=== PATIENT | male | born 1985 | race Two or more races ===

== ENCOUNTER 2017-02-16 18:53 | Emergency (ER) | payer OTHER ==
[~2017-02-16] VITALS: Ht 182.9 cm; Wt 122.5 kg
--- NOTE | 2017-02-16 19:23 | Emergency Room Report ---
History of Present Illness General Chief Complaint: General Complaint Source: Patient Present Illness HPI 32-year-old male presents to the emergency department complaining of fatigue, feeling light-headed with intermittent dizziness, polyuria in addition to numbness down a localized portion of the lateral right leg. Patient reports previous history of muscle spasm in the low back denies history of sciatica. Denies trauma or fall. he reports intermittent dizziness upon getting up too quickly, describes feeling off balance for several seconds then resolves. he reports feeling weak and as if he is near syncope. Denies Pmhx. Denies history of diabetes or cardiac problems. Denies recent illness or travel. He denies vertigo, calf pain, or claudication. Denies familial cardiac or DM hx. Denies nausea or vomiting. Denies fevers, chills, abdominal pain, rash, CHUN, tinnitus. Denies CP, LOC, AMS, , Changes in Vision, or a sudden severe headache. Allergies: Coded Allergies: No Known Allergies (Unverified , 02/16/17) Patient History Past Medical History: see triage record Past Surgical History: none Pertinent Family History: none Reviewed Nursing Documentation: PMH: Agreed, PSxH: Agreed Nursing Documentation-PMH Past Medical History: No Stated History Review of Systems All Other Systems: negative except mentioned in HPI Physical Exam Vital Signs Date Time Temp Pulse Resp B/P (MAP) Pulse Ox O2 Delivery O2 Flow Rate FiO2 02/16/17 19:01 98.1 76 18 154/83 99 Room Air Sp02 EP Interpretation: reviewed, normal General Appearance: no apparent distress, alert, GCS 15, non-toxic Head: normocephalic, atraumatic Eyes: bilateral eye normal inspection, bilateral eye PERRL ENT: hearing grossly normal, normal voice Neck: full range of motion, thyroid normal - grossly normal, supple/symm/no masses Respiratory: lungs clear, normal breath sounds, speaking full sentences Cardiovascular #1: regular rate, rhythm, no edema, no murmur, normal capillary refill Cardiovascular #2: 2+ radial (R), 2+ dorsalis pedis (R), 2+ dorsalis pedis (L) Genitourinary: no CVA tenderness Musculoskeletal: back normal, gait/station normal, normal range of motion, non- tender, no calf tenderness, Hoang's Sign negative, other - NO TTP to the right extremity, pt. localized small area of percieved paresthesia to the lateral aspect of the right thigh. No midline spinal TTP, no obvious deformities, pulses in the extremity are 2+ and equal. Neurologic: alert, oriented x3, responsive, motor strength/tone normal, sensory intact, cerebellar normal, normal gait, speech normal, no pronator Psychiatric: judgement/insight normal, memory normal, mood/affect normal Skin: normal color, no rash, warm/dry, well hydrated Lymphatic: no adenopathy Medical Decision Making PA Attestation Dr. Ferrer is my supervising Physician whom patient management has been discussed with. Diagnostic Impression: Primary Impression: Orthostatic dizziness Additional Impression: Paresthesia of right leg ER Course 32-year-old male presents to the emergency department complaining of fatigue, feeling light-headed with intermittent dizziness, polyuria in addition to numbness down a localized portion of the lateral right leg. Patient reports previous history of muscle spasm in the low back denies history of sciatica. Denies trauma or fall. he reports intermittent dizziness upon getting up too quickly, describes feeling off balance for several seconds then resolves. he reports feeling weak and as if he is near syncope. Denies Pmhx. Denies history of diabetes or cardiac problems. Denies recent illness or travel. He denies vertigo, calf pain, or claudication. Denies familial cardiac or DM hx. Denies nausea or vomiting. Denies fevers, chills, abdominal pain, rash, CHUN, tinnitus. Denies CP, LOC, AMS, , Changes in Vision, or a sudden severe headache. Described as: episodic upon standing lasting several seconds and resolves, without visual/hearing changes. Ddx considered but are not limited to Mnire's, BPPV, labyrinthitis, cerebellar stroke, hypovolemia, cardiac cause, DVT Vital signs: are WNL, pt. is afebrile H&PE are most consistent with : possible dehydration, will r/o anemia and cardiac arrhythmia. I do not suspect DVT at this time given physical exam., given lack of RF , no CP and no SOB I do not feel in depth cardiac evaluation other than EKG is warranted, pt. has other more likely causes for his symptoms. ORDERS: -CBC : mildly decreased RBC, and Hct, and elevated eosinophiles- otherwise unremarkable -CMP: unremarkable/ WNL - EK BPM NSR - no acute ST changes reviewed by Dr. Ferrer, this interpretation was scribed by ANA Giraldo -Orthostatic VS: unremarkable ED INTERVENTIONS: -1000cc NS -D/W pt. to refrain from driving if he feels dizzy. D/w pt. to follow up with PCP. DISCHARGE: At this time pt. is stable for d/c to home. Will provide printed patient care instructions, and any necessary prescriptions. Care plan and follow up instructions have been discussed with the patient prior to discharge. Labs Test 02/16/17 19:35 White Blood Count 7.9 K/UL (4.8-10.8) Red Blood Count 4.66 M/UL (4.70-6.10) Hemoglobin 15.0 G/DL (14.2-18.0) Hematocrit 40.2 % (42.0-52.0) Mean Corpuscular Volume 86 FL (80-99) Mean Corpuscular Hemoglobin 32.2 PG (27.0-31.0) Mean Corpuscular Hemoglobin Concent 37.4 G/DL (32.0-36.0) Red Cell Distribution Width 12.0 % (11.6-14.8) Platelet Count 206 K/UL (150-450) Mean Platelet Volume 6.4 FL (6.5-10.1) Neutrophils (%) (Auto) 37.6 % (45.0-75.0) Lymphocytes (%) (Auto) 51.1 % (20.0-45.0) Monocytes (%) (Auto) 5.8 % (1.0-10.0) Eosinophils (%) (Auto) 4.5 % (0.0-3.0) Basophils (%) (Auto) 1.0 % (0.0-2.0) Sodium Level 143 mEQ/L (135-145) Potassium Level 4.2 mEQ/L (3.4-4.9) Chloride Level 106 mEQ/L (98-107) Carbon Dioxide Level 23 mEQ/L (20-30) Anion Gap 14 (5-15) Blood Urea Nitrogen 15 mg/dL (7-23) Creatinine 1.1 mg/dL (0.7-1.2) Estimat Glomerular Filtration Rate > 60 mL/min (>60) Glucose Level 110 mg/dL (74-106) Calcium Level 9.4 mg/dL (8.6-10.2) Last Vital Signs Date Time Temp Pulse Resp B/P (MAP) Pulse Ox O2 Delivery O2 Flow Rate FiO2 02/16/17 19:01 98.1 76 18 154/83 99 Room Air Disposition: HOME, SELF-CARE Condition: Stable Patient Instructions: Dizziness, [id number], Paresthesia Additional Instructions: Take medications as directed. Follow up with a Primary Care Provider in 3-5 days, even if your symptoms have resolved. --Please review list of primary care clinics, if you do not already have a primary care provider Return sooner to ED if new symptoms occur, or current symptoms become worse. - Please note that this Emergency Department Report was dictated using [employer] writer technology software, occasionally this can lead to erroneous entry secondary to interpretation by the dictation equipment. Gill Giraldo Feb 16, 2017 19:23
[2017-02-16 19:30] VITALS: BP_SYST 120; BP_SYST 125; BP_DIAS 72; BP_DIAS 80; BP_DIAS 81
[2017-02-16 19:49] LABS: EOSINOPHILS % (AUTO) 4.5 % (0.0-3.0); LYMPHOCYTES % (AUTO) 51.1 % (20.0-45.0); MEAN CORPUSCULAR HEMOGLOBIN 32.2 PG (27.0-31.0); MEAN CORPUSCULAR HGB CONC 37.4 G/DL (32.0-36.0); MEAN CORPUSCULAR VOLUME 86 FL (80-99); MEAN PLATELET VOLUME 6.4 FL (6.5-10.1); MONOCYTES % (AUTO) 5.8 % (1.0-10.0); NEUTROPHILS % (AUTO) 37.6 % (45.0-75.0); PLATELET COUNT 206 K/UL (150-450); RED BLOOD COUNT 4.66 M/UL (4.70-6.10); WHITE BLOOD COUNT 7.9 K/UL (4.8-10.8)
[2017-02-16 20:06] LABS: ANION GAP 14 (5-15); CALCIUM 9.4 mg/dL (8.6-10.2); CARBON DIOXIDE 23 mEQ/L (20-30); CHLORIDE 106 mEQ/L (98-107); CREATININE 1.1 mg/dL (0.7-1.2); GLOMERULAR FILTRATION RATE > 60 mL/min (>60); HEMOLYSIS 36; POTASSIUM 4.2 mEQ/L (3.4-4.9); SODIUM 143 mEQ/L (135-145)
[2017-02-16 21:02] VITALS: BP 135/89
== END 2017-02-16 21:00 | disposition home or self-care (01) ==
LOC: EMR 19:40
DX: R42 Dizziness and giddiness (principal); R53.83 Other fatigue; R35.8 Other polyuria; R20.8 Other disturbances of skin sensation
CPT/HCPCS: 36415; 80048; 85025; 99284

== ENCOUNTER 2017-06-05 22:50 | Emergency (ER) | payer OTHER ==
[~2017-06-05] VITALS: Ht 182.9 cm; Wt 127.0 kg
[2017-06-05] MEDS ORDERED: NKM (22:58)
[2017-06-05] MEDS ORDERED: Dicyclomine HCl 10mg/5ml oral soln ORAL ONE (23:30)
[2017-06-06] MEDS ORDERED: BENTYL10 MG ORAL (00:30)
[2017-06-06 00:36] VITALS: BP 130/85
--- NOTE | 2017-06-06 05:15 | Emergency Room Report ---
History of Present Illness General Chief Complaint: Abdominal Pain Source: Patient Present Illness HPI Patient is a 32 male presented after increased abdominal discomfort as well as diarrhea. Patient gradual onset of symptoms. He reported having increased left lower abdominal cramping. He denies any fever or any bloody stools. Patient stated that he had no prior past medical history. He denies recent travel. He denies any nausea or vomiting. He denies recent antibiotic use. Allergies: Coded Allergies: No Known Allergies (Unverified , 02/16/17) Patient History Past Medical History: see triage record Reviewed Nursing Documentation: PMH: Agreed, PSxH: Agreed Nursing Documentation-PMH Hx Gastrointestinal Problems: Yes - COLITIS Review of Systems All Other Systems: negative except mentioned in HPI Physical Exam Vital Signs Date Time Temp Pulse Resp B/P (MAP) Pulse Ox O2 Delivery O2 Flow Rate FiO2 06/05/17 22:53 97.9 99 16 128/81 98 Room Air General Appearance: GCS 15, obese Head: normocephalic, atraumatic ENT: hearing grossly normal, normal voice Neck: full range of motion, supple Respiratory: no respiratory distress, speaking full sentences Cardiovascular #1: normal inspection, normal peripheral pulses Gastrointestinal: tenderness - left lower quadrant Musculoskeletal: normal inspection, back normal, no calf tenderness Neurologic: normal inspection, alert, oriented x3, responsive, 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 Differential diagnoses included ischemic bowel, appendicitis, perforated viscus, abdominal aortic aneurysm, inferior myocardial infarction, viral gastroenteritis Patient's benign exam and does not appear to require any further imaging or laboratory testing at this time. The patient appears to have a viral gastroenteritis. Does not appear dehydrated. The patient was given prescription for antispasmodic medication. He was advised dietary modification. The patient is advised to follow up with primary care doctor in 1 -2 days. Patient is advised to return if any worsening condition or if any changes in status that are concerning. This report is dictated with [employer] software which may occasionally lead to discrepancies related to use of this software. Last Vital Signs Date Time Temp Pulse Resp B/P (MAP) Pulse Ox O2 Delivery O2 Flow Rate FiO2 06/06/17 00:36 97 18 130/85 99 Room Air 06/05/17 22:53 97.9 Status: improved Disposition: HOME, SELF-CARE Condition: Stable Scripts Dicyclomine Hcl* (BENTYL*) 10 Mg Capsule 10 MG ORAL FOUR TIMES A DAY, #20 CAP Prov: Mayank Akhtar 06/06/17 Referrals: RUFINA PEREZ,REFERRING (PCP) Patient Instructions: Abdominal Pain, Adult Mayank Akhtar Jun 06, 2017 05:15
== END 2017-06-06 00:36 | disposition home or self-care (01) ==
LOC: EMR 06-06 00:35
DX: R10.9 Unspecified abdominal pain (principal); Z87.19 Personal history of other diseases of the digestive system
CPT/HCPCS: 99284